=== PATIENT | male | born 2000 | race American Indian/Alaskan Native ===

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

== ENCOUNTER 2022-02-04 09:13 | Emergency (ER) | payer OTHER ==
[~2022-02-04] VITALS: Ht 190.5 cm; Wt 88.9 kg
[2022-02-04] MEDS ORDERED: CEPHALEXIN500 M1 PO (10:12)
== END 2022-02-04 10:48 | disposition home or self-care (01) ==
LOC: ED 09:13
DX: S56.427A Laceration of extensor muscle, fascia and tendon of right little finger at forearm level, initial encounter (principal); X58.XXXA Exposure to other specified factors, initial encounter; Z23 Encounter for immunization
CPT/HCPCS: 12002; 73140; 90471; 90715; 99283-25; A9270